=== PATIENT | male | born 1960 | race Caucasian/White ===

== ENCOUNTER → 2018-01-14 07:20 | Outpatient (CLI) | payer OTHER, SELFPAY ==
[2018-01-14 08:08] LABS: Basophils # 0.1 K/mm3 (0-0.2); Eosinophils # 0.4 K/mm3 (0.0-0.4); Hematocrit 38.8 % (42.0-52.0); Hemoglobin 12.9 g/dL (14.1-18.0); Lymphocytes % 27.7 K/mm3 (10-50); Mean Corpuscular HGB Conc 33.3 g/dL (31.8-35.4); Mean Corpuscular Hemoglobin 29.3 pg (27.0-31.2); Mean Platelet Volume 8.5 fl (7.4-10.4); Monocytes # 0.6 K/mm3 (0.1-1.0); Monocytes % 7.7 % (1.7-9.3); Neutrophils # 4.2 K/mm3 (1.8-7.8); Neutrophils % 58.6 % (37.0-80.0); Platelet Count 268 K/mm3 (142-424); Red Blood Count 4.41 M/mm3 (4.60-6.20); Red Cell Distribution Width 13.2 % (11.5-17.5); White Blood Count 7.1 K/mm3 (4.8-10.8)
[2018-01-14 09:54] LABS: Hemoglobin A1C 9.2 % (0.0-7.0)
[2018-01-14 10:02] LABS: Alanine Aminotransferase 29 U/L (12-78); Albumin/Globulin Ratio 1.4 (1.1-1.8); Alkaline Phosphatase 70 U/L (46-116); Anion Gap 19.5 mEq/L (5-15); Aspartate Amino Transferase 19 U/L (15-37); Bilirubin,Total 0.3 mg/dL (0.2-1.0); Blood Urea Nitrogen 23 mg/dL (7-18); Calcium 9.5 mg/dL (8.5-10.1); Carbon Dioxide 27 mmol/L (21.0-32.0); Chloride 100 mmol/L (98-107); Chol/HDL Ratio 9.9 (1-3.5); Cholesterol 237 mg/dL (140-200); Creatinine,Serum 1.18 mg/dL (0.70-1.30); Estimated Glomerular Filt Rate 63 ml/min (>60); Ferritin 28 ng/mL (8-388); GFR (African American) 76 ML/MIN (>60); Globulin 2.8 gm/dl (1.3-3.2); Glucose 257 mg/dL (74-106); HDL Cholesterol 24 mg/dL (27-67); Potassium 4.5 mmoL/L (3.5-5.1); Sodium 142 mmol/L (136-145); Total Protein,Serum 6.8 gm/dL (6.4-8.2)
[2018-01-14 10:07] LABS: Triglycerides 728 mg/dL (30-200)
== END ==
PROVIDERS: Visit Provider Internal Medicine Adolescent Medicine
DX: E78.1 Pure hyperglyceridemia (principal); E83.110 Hereditary hemochromatosis; E11.9 Type 2 diabetes mellitus without complications
CPT/HCPCS: 36415; 80053; 80061; 82728; 83036; 85025

== ENCOUNTER 2018-04-15 08:30 | Outpatient (RCR) | payer BC, SELFPAY ==
--- NOTE | 2018-01-08 09:29 | HMH.PTOPEV ---
Rehab Outpatient Evaluation Rehab OP Evaluation Start: 01/08/18 09:23 Freq: Status: Active Protocol: Document 01/08/18 09:23 WARREN (Rec: 01/08/18 09:29 WARREN [id number]) Electronically Signed By Karthikeyan Franks, PT 01/08/18 09:23 Outpatient Therapy Subjective History Subjective History Pt presents with right shld stiffness and weakness 5 wks S /P right SAD with bicep tenodesis. He reports minimal discomfort at rest and pain only with certain movements. He originally injured the shld > 1 yr ago after [place] He reports PMH of HL and DM-II. Chief Complaint Pain Stiff Symptom Type Ache Symptoms Relieved By Rest/Positioning Symptoms Aggravated By Physical Activity Prior Functional Limitations Reaching Lifting Sleeping Current Functional Limitations Reaching Lifting Level of pain today (0-10) 2 Pain scale - at its worst (0-10) 3 Shoulder/Elbow Eval Shoulder Objective Measurements Palpation Tenderness tenderness over the bicipital tendon right shoulder exam standard Posture Shoulder Posture Sitting Position (L) Rounded (R) Rounded Shoulder ROM Right Shoulder Abduction Active Range of 0-105 Motion (degrees) Shoulder Flexion Active Range of Motion 0-115 (degrees) Query Text: Shoulder External Rotation Active Range 0-35 of Motion (degrees) Shoulder Internal Rotation Active Range 0-25 of Motion (degrees) Shoulder MMT Shoulder Abduction Strength Grade 2+ Poor+ Shoulder Flexion Strength Grade 2+ Poor+ Shoulder External Rotation Strength 2+ Poor+ Grade Shoulder Internal Rotation Strength 2+ Poor+ Grade Elbow Objective Measurements Outpatient Therapy Assessment Impairments Problems/Impairmments Palpation Tenderness Impaired Range of Motion Impaired Strength Impaired Lifting Subjective C/O Pain Impaired Self Care/Self Management Prognosis Rehab Potential Good Clinical Impression Consistent with Diagnosis Yes Short Term Goals Number of Weeks
--- NOTE | 2018-02-19 09:16 | HMH.RHREAS ---
Rehab Reassessment Rehab OP Re-assessment Start: 02/19/18 09:10 Freq: Status: Active Protocol: Document 02/19/18 09:13 WARREN (Rec: 02/19/18 09:16 WARREN [id number]) Electronically Signed By Karthikeyan Franks, PT 02/19/18 09:13 Rehab Re-assessment Subjective Subjective Pt reports minimal pain and only intermittent at this time . Objective Objective Notes Right shld AROM: Flex= 0-140, ABD= 0-117, ER= 0-46, IR= 0-49 Assessment Progress Assessment Progressing as Expected Assessment Notes Pt with steadily improving ROM and strength, remain very stiff at end range. Patient goals met ST,2,3,4,5 LT Goals Not Met ST LT,2,3,4,5 Revised Goals none Plan Plan Continue per initial POC Frequency of Therapy 2x/wk Duration of therapy 8 wks Time and Billing Re-Eval Time 15 Re-Eval Billing Units 1 PHYSICIAN CERTIFICATION: I certify the specified therapy services for Deshawn Zarate are required, authorized, and reviewed every 30 days.
== END 2018-04-15 08:31 | disposition home or self-care (01) ==
LOC: PT 08:30
PROVIDERS: Family Provider Internal Medicine Adolescent Medicine; PCP Internal Medicine Adolescent Medicine; Visit Provider Orthopaedic Surgery
DX: M25.511 Pain in right shoulder (principal); R53.1 Weakness
CPT/HCPCS: 97010; 97014; 97110; 97140; 97163; 97164; G0283

== ENCOUNTER → 2018-07-23 09:15 | Outpatient (CLI) | payer BC, SELFPAY ==
[2018-07-23 10:23] LABS: Alanine Aminotransferase 31 U/L (12-78); Albumin/Globulin Ratio 1.3 (1.1-1.8); Alkaline Phosphatase 57 U/L (46-116); Anion Gap 13.5 mEq/L (5-15); Aspartate Amino Transferase 10 U/L (15-37); Bilirubin,Total 0.3 mg/dL (0.2-1.0); Blood Urea Nitrogen 30 mg/dL (7-18); Calcium 9.9 mg/dL (8.5-10.1); Carbon Dioxide 29 mmol/L (21.0-32.0); Chloride 101 mmol/L (98-107); Chol/HDL Ratio 9.1 (1-3.5); Cholesterol 263 mg/dL (140-200); Creatinine,Serum 0.98 mg/dL (0.70-1.30); Estimated Glomerular Filt Rate 78 ml/min (>60); Ferritin 23 ng/mL (8-388); GFR (African American) 94 ML/MIN (>60); Glucose 247 mg/dL (74-106); HDL Cholesterol 29 mg/dL (27-67); Potassium 4.5 mmoL/L (3.5-5.1); Sodium 139 mmol/L (136-145)
[2018-07-23 10:25] LABS: Basophils # 0.1 K/mm3 (0-0.2); Basophils % 1.4 % (0.1-2.0); Eosinophils # 0.3 K/mm3 (0.0-0.4); Eosinophils % 4.3 % (0.1-12.0); Hematocrit 43.2 % (42.0-52.0); Hemoglobin 13.7 g/dL (14.1-18.0); Mean Corpuscular HGB Conc 31.8 g/dL (31.8-35.4); Mean Corpuscular Hemoglobin 28.1 pg (27.0-31.2); Mean Corpuscular Volume 88.5 fl (80-94); Mean Platelet Volume 8.2 fl (7.4-10.4); Monocytes # 0.4 K/mm3 (0.1-1.0); Monocytes % 6.4 % (1.7-9.3); Neutrophils # 4.2 K/mm3 (1.8-7.8); Neutrophils % 59.9 % (37.0-80.0); Platelet Count 264 K/mm3 (142-424); Red Blood Count 4.88 M/mm3 (4.60-6.20); Red Cell Distribution Width 14.1 % (11.5-17.5)
[2018-07-23 10:26] LABS: Hemoglobin A1C 9.2 % (0.0-7.0); Triglycerides 536 mg/dL (30-200)
== END ==
PROVIDERS: Visit Provider Internal Medicine Adolescent Medicine
DX: E11.9 Type 2 diabetes mellitus without complications (principal); E83.110 Hereditary hemochromatosis; I10 Essential (primary) hypertension
CPT/HCPCS: 36415; 80053; 80061; 82728; 83036; 85025

== ENCOUNTER → 2018-11-25 07:33 | Outpatient (CLI) | payer OTHER, SELFPAY ==
[2018-11-25 07:40] LABS: MANUAL DIFFERENTIAL MANUAL DIFFERENTIAL (MANUAL DIFF)
[2018-11-25 08:13] LABS: Basophils # 0.1 K/mm3 (0-0.2); Basophils % 1.1 % (0.1-2.0); Eosinophils # 0.3 K/mm3 (0.0-0.4); Eosinophils % 4.6 % (0.1-12.0); Hematocrit 45.3 % (42.0-52.0); Lymphocytes # 1.9 K/mm3 (0.7-4.5); Lymphocytes % 26.5 % (10-50); Mean Corpuscular HGB Conc 33.1 g/dL (31.8-35.4); Mean Corpuscular Hemoglobin 28.3 pg (27.0-31.2); Mean Corpuscular Volume 85.5 fl (80-94); Monocytes # 0.5 K/mm3 (0.1-1.0); Monocytes % 6.9 % (1.7-9.3); Neutrophils # 4.3 K/mm3 (1.8-7.8); Neutrophils % 60.8 % (37.0-80.0); Platelet Count 279 K/mm3 (142-424); Red Cell Distribution Width 13.6 % (11.5-17.5)
[2018-11-25 09:35] LABS: Alanine Aminotransferase 33 U/L (12-78); Albumin Level 4.1 gm/dL (3.4-5.0); Alkaline Phosphatase 64 U/L (46-116); Anion Gap 17.3 mEq/L (5-15); Aspartate Amino Transferase 19 U/L (15-37); Bilirubin,Direct 0.1 mg/dL (0.0-0.2); Bilirubin,Indirect 0.2 mg/dL (0.0-0.9); Bilirubin,Total 0.3 mg/dL (0.2-1.0); Blood Urea Nitrogen 33 mg/dL (7-18); Calcium 9.6 mg/dL (8.5-10.1); Carbon Dioxide 23 mmol/L (21.0-32.0); Chloride 102 mmol/L (98-107); Cholesterol 259 mg/dL (140-200); Creatinine,Serum 1.21 mg/dL (0.70-1.30); Estimated Glomerular Filt Rate 61 ml/min (>60); Free Thyroxine Index 2.2 ug/dL (5.93-13.13); GFR (African American) 74 ML/MIN (>60); Glucose 245 mg/dL (74-106); HDL Cholesterol 26 mg/dL (27-67); Potassium 4.3 mmoL/L (3.5-5.1); Sodium 138 mmol/L (136-145); T4 (Thyroxine) 6.5 ug/dl (4.7-13.3); Total Protein,Serum 7.2 gm/dL (6.4-8.2); Triiodothryronine (T3) Uptake 34 % (31-39)
[2018-11-25 09:44] LABS: Ferritin 20 ng/mL (8-388)
[2018-11-25 09:53] LABS: Triglycerides 662 mg/dL (30-200)
[2018-11-25 10:30] LABS: Hemoglobin A1C 8.5 % (0.0-7.0)
[2018-11-25 10:52] LABS: Lymphocytes % 31 % (10-50); Monocytes % 6 % (2-9); Neutrophils % 61 % (42-76); Total Cells Counted 100
[2018-11-25 10:53] LABS: Platelet Estimate Normal
== END ==
PROVIDERS: PCP Internal Medicine Adolescent Medicine; Visit Provider Physician Assistant
DX: E11.9 Type 2 diabetes mellitus without complications (principal); E78.1 Pure hyperglyceridemia; E83.110 Hereditary hemochromatosis
CPT/HCPCS: 36415; 80048; 80061; 80076; 82728; 83036; 84436; 84443; 84479; 85007; 85014; 85018; 85048; 85049

== ENCOUNTER → 2018-12-10 07:44 | Outpatient (CLI) | payer BC, SELFPAY ==
--- NOTE | 2018-12-10 07:46 | CA_ITS ---
PROCEDURE: 2-D M-mode and color Doppler study INDICATIONS FOR THE TEST: Chest pain+ COPD Heart Murmur Tobacco Smoking Palpitations Fatigue Syncope Edema Hypertension+Diabetes Mellitus+ Rheumatic Fever SOB+PORRAS Obesity Hyperlipidemia+ Family History HD Additional History GERD, ABN EKG PATIENT INFORMATION HEIGHT: 72 WEIGHT:216 GENDER: Male B/P:116/68 2-D/M-MODE INTERPRETATION: 2-D MEASUREMENTS OBSERVED VALUES IN CMS Right Ventricular Dimension (RVDd) 2.6 Interventricular Septum (Thickness)(IVsd) 1.3 Left Ventricular Internal Dimensions(LVIDd) 4.6 Left Ventricular Posterior Wall (Thickness)(LVPWd) 0.9 Aortic Root 3.5 Aortic Cusp Separation 1.8 Left Atrial Dimensions (LAD) 4.0 2D 1. Left atrium is mildly enlarged, left ventricle is normal size, mild concentric left ventricular hypertrophy, visually estimated ejection fraction 55% with no regional wall motion abnormality. 2. The right atrium and right ventricle are normal size and contractility. 3. The aortic valve is thickened and calcified leaflet continue to display mobility. 4. The mitral and tricuspid valvular grossly normal. 5. The pulmonic valve is poorly present. 6. No significant pericardial effusion noted. DOPPLER INTERROGATION: Doppler interrogation of the aortic, mitral and tricuspid valvular presence of mild mitral and tricuspid regurgitation, tricuspid regurgitation jet velocity is inadequate for calculation of the right ventricular systolic pressure, grade 1 diastolic dysfunction seen without tissue Doppler evidence of raised left atrial pressure. CONCLUSION: 1. Mildly enlarged left atrium, normal left ventricular size, mild concentric left ventricular hypertrophy, visually estimated ejection fraction 55% with no regional wall motion abnormality, grade 1 diastolic dysfunction seen without tissue Doppler evidence of raised left atrial pressure. 2. Thickened and calcified aortic valve without Doppler evidence of aortic stenosis aortic insufficiency. 3. Mild mitral and tricuspid regurgitation 4. No significant pericardial effusion noted.
--- NOTE | 2018-12-10 07:46 | CT_ITS ---
CT chest wo con HISTORY: ITS.REASON: chest pain, ex smoker ORDERING PHYSICIAN: Bro Paul MD PATIENT AGE: 58 years COMPARISON: 10/21/2016 Technique: Axial images obtained. Sagittal, and coronal reformatted images are also generated and reviewed. All CT scans at the facility use one or more dose reduction, viz: automated exposure control, ma/kV adjustment per patient size (including targeted exams where dose is matched to indication, i.e. head), or iterative reconstruction technique. FINDINGS: There are scattered calcified mediastinal and hilar lymph nodes. Coronary artery calcifications are present. There is also some aortic valve calcification noted. Normal heart size. No evidence of pericardial effusion. No evidence of aortic aneurysm. Calcified granuloma is present in the right upper lobe centrally. No lobar consolidation or collapse. No central obstructing lesions. There is mild wedging involving T10 vertebral body which appear stable. No acute bony anomalies are evident. Upper abdominal images show multiple right renal cysts. No calcified gallstones are evident. There is mild thickening of the distal esophagus with possible small hiatal hernia IMPRESSION: 1. No acute thoracic findings. 2. Coronary artery calcification and minimal aortic valve calcification. 3. Mild thickening of the distal esophagus which could be related to esophagitis with possible small hiatal hernia
--- NOTE | 2018-12-10 09:00 | US_ITS ---
US gallbladder HISTORY: Epigastric pain ITS.REASON: GERD, chest pain ORDERING PHYSICIAN: Bro Paul MD PATIENT AGE: 58 years Comparison: None FINDINGS: PANCREAS: Unremarkable. No obvious mass or abnormal fluid collection. No ductal dilatation LIVER: No focal liver lesions demonstrated. Homogeneous echogenicity. No intrahepatic biliary ductal dilatation evident RIGHT KIDNEY: There are multiple right renal cysts. The largest cyst along the lower pole at 7 cm GALLBLADDER: No gallstones, gallbladder wall thickening, pericholecystic fluid, or biliary dilatation. Small amount sludge noted in the gallbladder. IMPRESSION: 1. Multiple right renal cysts. 2. Small amount of gallbladder sludge versus concentrated bile. No gallstones or biliary dilatation
== END ==
PROVIDERS: PCP Internal Medicine Adolescent Medicine; Visit Provider Internal Medicine Cardiovascular Disease
DX: R06.09 Other forms of dyspnea; K21.9 Gastro-esophageal reflux disease without esophagitis; R07.89 Other chest pain; E11.9 Type 2 diabetes mellitus without complications; E78.5 Hyperlipidemia, unspecified; I10 Essential (primary) hypertension; Z87.891 Personal history of nicotine dependence; G47.9 Sleep disorder, unspecified; R40.0 Somnolence
CPT/HCPCS: 71250; 76705; 93306; G0399

== ENCOUNTER → 2018-12-18 06:45 | Outpatient (CLI) | payer BC, SELFPAY ==
--- NOTE | 2018-12-18 06:46 | NM_ITS ---
SPECT MYOCARDIAL PERFUSION SCAN, REST AND STRESS: EXERCISE STRESS: [facility] REVIEW QGS EF AND WALL MOTION EVALUATION: QPS - PERFUSION EVALUATION: HISTORY: DM, Family history PROCEDURE: Rest imaging performed after administration of10.31 millicuries Tc MIBI. Dose administered at7:00 a.m., with imaging thereafter. Stress imaging was then performed following9 minutes 45 seconds of exercise stress. The patient achieved a heart [id number] with projected heart rate of136 . Resting BP165/89 with stress 168/74. At maximum exercise stress,32.3 millicuries Tc MIBI administered at8:40 a.m. with onuioou90 minutes thereafter. FINDINGS: Perfusion Evaluation: The single slice spect images as well as the [facility] bull's-eye data summary were reviewed. Wall Motion and Ejection Fraction Evaluation: Gated SPECT review and analysis used to evaluate these features. There is a 59 % left ventricular ejection fraction. There seems to be good wall motion Uniform myocardial activity at both stress and rest IMPRESSION: No scintigraphic evidence of exercise-induced myocardial ischemia normal ejection fraction normal wall motion
--- NOTE | 2018-12-18 10:00 | HMH.ITSHM ---
Current Home Medications as stated by this patient Deshawn Zarate or charter representative. [] omeprazole metformin lisinopril glimepride fenofirate
== END ==
PROVIDERS: PCP Internal Medicine Adolescent Medicine; Visit Provider Internal Medicine Cardiovascular Disease
DX: R07.9 Chest pain, unspecified (principal); R06.00 Dyspnea, unspecified; R94.31 Abnormal electrocardiogram [ECG] [EKG]; E11.9 Type 2 diabetes mellitus without complications; E78.5 Hyperlipidemia, unspecified; I10 Essential (primary) hypertension; I25.10 Atherosclerotic heart disease of native coronary artery without angina pectoris; K21.9 Gastro-esophageal reflux disease without esophagitis; G47.9 Sleep disorder, unspecified; R06.83 Snoring; R40.0 Somnolence; Z87.891 Personal history of nicotine dependence
CPT/HCPCS: 78452; 93017; A9502

== ENCOUNTER → 2019-02-03 08:11 | Outpatient (POV) | payer BC, SELFPAY | PROVIDERS: Visit Provider Dermatology | DX: Z00.00 Encounter for general adult medical examination without abnormal findings (principal) ==

== ENCOUNTER 2019-02-24 12:10 | Emergency (ER) | payer BC, SELFPAY ==
[2019-02-24] VITALS (8 sets, daily range): BP systolic 116–152; BP diastolic 60–94; PULSE 77–111; RESP 15–19; TEMP 36.7; O2SAT 94–98; BMI 28.5
--- NOTE | 2019-02-24 12:11 | PC.NURSE ---
Dr. Castaneda at BS upon pt arrival to ED, Dr Castaneda gave verbal orders for pt.
--- NOTE | 2019-02-24 12:11 | PC.NURSE ---
radiology contacted for chest xray and possible head ct radiology staff stated that wanted portable chest xray but no head CT at this time
--- NOTE | 2019-02-24 12:12 | XR_ITS ---
XR chest AP HISTORY: ITS.REASON: tachycardia ORDERING PHYSICIAN: Donald Cantor MD PATIENT AGE: 58 years COMPARISON: 10/21/2016. FINDINGS: The cardiomediastinal silhouette and pulmonary vascularity are within normal limits. The lungs are clear without infiltrates, suspicious nodules, or pleural effusions. No acute bony abnormalities. IMPRESSION: Negative chest, no acute finding
--- NOTE | 2019-02-24 12:13 | PC.NURSE ---
DR MILLER AT BEDSIDE AND DR CARROLL
--- NOTE | 2019-02-24 12:14 | HMH.EDGENADL ---
ED Disposition Clinical Impression: Weakness, Diaphoresis, Tachycardia Disposition: Home, Self-Care Condition on Discharge: Good Additional Instructions: See Dr. Stokes tomorrow at 9 AM. Return to the emergency room if symptoms return. Referrals: Provider,Referral, [Referring] - - Critical Care Critical Care Time: No Attestation: On , the high probability of a clinically significant, sudden or life threatening deterioration of the following system(s) required my full and direct attention, intervention and personal management. The time I documented below is in addition to time spent performing reported procedures but includes the following listed in this critical care notation. Medical Decision Making - Varghese Inquiry Pt receiving controlled substance: No Vital Signs: 02/24/19 12:11 02/24/19 12:17 02/24/19 12:41 Temperature Temperature Source Pulse Rate [Left Radial] 100 H 111 H 83 Respiratory Rate 19 16 Blood Pressure [Right Arm] 116/84 145/94 H 119/70 Blood Pressure Mean [Right Arm] 94 111 86 Blood Pressure Source [Right Arm] Automatic Cuff Automatic Cuff Automatic Cuff Blood Pressure Position [Right Arm] Sitting Sitting Sitting 02 Sat by Pulse Oximetry 95 96 94 L Oxygen Delivery Method Room Air Room Air Room Air 02/24/19 13:11 02/24/19 13:30 02/24/19 14:22 Temperature 98.0 F Temperature Source Oral Pulse Rate [Left Radial] 83 85 80 Respiratory Rate 17 17 Blood Pressure [Right Arm] 127/67 123/60 128/68 Blood Pressure Mean [Right Arm] 87 81 88 Blood Pressure Source [Right Arm] Automatic Cuff Automatic Cuff Automatic Cuff Blood Pressure Position [Right Arm] Sitting Sitting Supine 02 Sat by Pulse Oximetry 94 L 95 97 Oxygen Delivery Method Room Air Room Air Room Air 02/24/19 16:00 Temperature Temperature Source Pulse Rate [Left Radial] 77 Respiratory Rate Blood Pressure [Right Arm] 152/76 H Blood Pressure Mean [Right Arm] 101 Blood Pressure Source [Right Arm] Automatic Cuff Blood Pressure Position [Right Arm] Sitting 02 Sat by Pulse Oximetry 97 Oxygen Delivery Method Room Air - Lab Data Lab Results 02/24/19 12:10: WBC 7.9, RBC 5.10, Hgb 14.1, Hct 43.8, MCV 85.9, MCH 27.6, MCHC 32.1, RDW 14.3, Plt Count 280, MPV 8.8, Neut % (Auto) 62.9, Lymph % (Auto) 27.1, [place] % (Auto) 5.8, Eos % (Auto) 3.1, Baso % (Auto) 1.0, Neut # (Auto) 5.0, Lymph # (Auto) 2.1, [place] # (Auto) 0.5, Eos # (Auto) 0.3, Baso # (Auto) 0.1 02/24/19 12:10: D-Dimer 121 02/24/19 12:10: Sodium 140, Potassium 3.8, Chloride 105, Carbon Dioxide 21, Anion Gap 17.8 H, BUN 18, Creatinine 1.34 H, Estimated Creat Clear 79, Estimated GFR 54 L, Est GFR ( Amer) 66, Glucose 226 H, Calcium 8.8, Total Bilirubin 0.6, AST 24, ALT 39, Alkaline Phosphatase 61, Troponin I < 0.02, Total Protein 6.9, Albumin 3.9, Globulin 3.0, Albumin/Globulin Ratio 1.3 02/24/19 15:23: Troponin I < 0.02 02/24/19 16:24: POC Glucose 205 H Result diagrams: 02/24/19 12:10 02/24/19 12:10 - Radiology Data #1 Image(s): Chest Image Reviewed: Yes I reviewed the patient's radiology image Preliminary Findings: Normal/NAD - ECG Data Tracing #1 EKG interpreted by Donald Cantor MD: Rhythm: sinus tachycardia Rate: 112 [place]: normal Ectopy: none Conduction: normal ST Segment Changes: none T Wave Changes: Nonspecific Q Waves: none No evidence of acute ischemia or injury - Physician Consults Physician Consulted: Courtney Stokes Time: 13:39 Reason -: Pt condition Comment/Response: Recommends discharge if second troponin normal, follow-up in the clinic tomorrow or Tim. Additional Consult: Leonel Time: 16:38 Reason -: Cardiology Eval/Care Comment/Response: Okay to discharge - Reevaluation(s) Time: 16:19 Reevaluation #1: Feels fine like nothing happened . Second troponin normal. Medical Decision Narrative: Prior Chest CT: IMPRESSION: 1. No acute thoracic findings. 2. Coronary artery calcification and m
--- NOTE | 2019-02-24 12:19 | ED_ITS ---
ED Disposition Clinical Impression: Weakness, Diaphoresis, Tachycardia Disposition: Home, Self-Care Condition on Discharge: Good Additional Instructions: See Dr. Stokes tomorrow at 9 AM. Return to the emergency room if symptoms return. Referrals: Provider,Referral, [Referring] - - Critical Care Critical Care Time: No Attestation: On , the high probability of a clinically significant, sudden or life threatening deterioration of the following system(s) required my full and direct attention, intervention and personal management. The time I documented below is in addition to time spent performing reported procedures but includes the following listed in this critical care notation. Medical Decision Making - Varghese Inquiry Pt receiving controlled substance: No Vital Signs: 02/24/19 12:11 02/24/19 12:17 02/24/19 12:41 Temperature Temperature Source Pulse Rate [Left Radial] 100 H 111 H 83 Respiratory Rate 19 16 Blood Pressure [Right Arm] 116/84 145/94 H 119/70 Blood Pressure Mean [Right Arm] 94 111 86 Blood Pressure Source [Right Arm] Automatic Cuff Automatic Cuff Automatic Cuff Blood Pressure Position [Right Arm] Sitting Sitting Sitting 02 Sat by Pulse Oximetry 95 96 94 L Oxygen Delivery Method Room Air Room Air Room Air 02/24/19 13:11 02/24/19 13:30 02/24/19 14:22 Temperature 98.0 F Temperature Source Oral Pulse Rate [Left Radial] 83 85 80 Respiratory Rate 17 17 Blood Pressure [Right Arm] 127/67 123/60 128/68 Blood Pressure Mean [Right Arm] 87 81 88 Blood Pressure Source [Right Arm] Automatic Cuff Automatic Cuff Automatic Cuff Blood Pressure Position [Right Arm] Sitting Sitting Supine 02 Sat by Pulse Oximetry 94 L 95 97 Oxygen Delivery Method Room Air Room Air Room Air 02/24/19 16:00 Temperature Temperature Source Pulse Rate [Left Radial] 77 Respiratory Rate Blood Pressure [Right Arm] 152/76 H Blood Pressure Mean [Right Arm] 101 Blood Pressure Source [Right Arm] Automatic Cuff Blood Pressure Position [Right Arm] Sitting 02 Sat by Pulse Oximetry 97 Oxygen Delivery Method Room Air - Lab Data Lab Results 02/24/19 12:10: WBC 7.9, RBC 5.10, Hgb 14.1, Hct 43.8, MCV 85.9, MCH 27.6, MCHC 32.1, RDW 14.3, Plt Count 280, MPV 8.8, Neut % (Auto) 62.9, Lymph % (Auto) 27.1, [place] % (Auto) 5.8, Eos % (Auto) 3.1, Baso % (Auto) 1.0, Neut # (Auto) 5.0, Lymph # (Auto) 2.1, [place] # (Auto) 0.5, Eos # (Auto) 0.3, Baso # (Auto) 0.1 02/24/19 12:10: D-Dimer 121 02/24/19 12:10: Sodium 140, Potassium 3.8, Chloride 105, Carbon Dioxide 21, Anion Gap 17.8 H, BUN 18, Creatinine 1.34 H, Estimated Creat Clear 79, Estimated GFR 54 L, Est GFR ( Amer) 66, Glucose 226 H, Calcium 8.8, Total Bilirubin 0.6, AST 24, ALT 39, Alkaline Phosphatase 61, Troponin I < 0.02, Total Protein 6.9, Albumin 3.9, Globulin 3.0, Albumin/Globulin Ratio 1.3 02/24/19 15:23: Troponin I < 0.02 02/24/19 16:24: POC Glucose 205 H Result diagrams: 02/24/19 12:10 02/24/19 12:10 - Radiology Data #1 Image(s): Chest Image Reviewed: Yes I reviewed the patient's radiology image Preliminary Findings: Normal/NAD - ECG Data Nhi
--- NOTE | 2019-02-24 12:20 | PC.NURSE ---
radiology notified of stat CT head r/o stroke per ER MD order
--- NOTE | 2019-02-24 12:20 | CT_ITS ---
CT head/brain wo con HISTORY: ITS.REASON: AMS ORDERING PHYSICIAN: Donald Cantor MD PATIENT AGE: 58 years COMPARISON: None TECHNIQUE: Axial images obtained without contrast. Brain and bone windows reviewed. All CT scans at the facility use one or more dose reduction, viz: automated exposure control, ma/kV adjustment per patient size (including targeted exams where dose is matched to indication, i.e. head), or iterative reconstruction technique. FINDINGS: No midline shift, mass effect, intracranial hemorrhage, hydrocephalus, or extra-axial fluid collection is evident. The calvarium has an unremarkable appearance. No mastoid effusion. No sinus air-fluid levels.. IMPRESSION: Negative CT head without contrast. No acute finding
--- NOTE | 2019-02-24 12:22 | PC.NURSE ---
Rad aware of orders
--- NOTE | 2019-02-24 12:23 | PC.NURSE ---
pt to CT
--- NOTE | 2019-02-24 12:25 | PC.NURSE ---
Pt tp rad
[2019-02-24 12:37] LABS: Basophils # 0.1 K/mm3 (0-0.2); Eosinophils # 0.3 K/mm3 (0.0-0.4); Eosinophils % 3.1 % (0.1-12.0); Hematocrit 43.8 % (42.0-52.0); Hemoglobin 14.1 g/dL (14.1-18.0); Lymphocytes # 2.1 K/mm3 (0.7-4.5); Lymphocytes % 27.1 % (10-50); Mean Corpuscular HGB Conc 32.1 g/dL (31.8-35.4); Mean Corpuscular Hemoglobin 27.6 pg (27.0-31.2); Mean Corpuscular Volume 85.9 fl (80-94); Mean Platelet Volume 8.8 fl (7.4-10.4); Monocytes # 0.5 K/mm3 (0.1-1.0); Monocytes % 5.8 % (1.7-9.3); Neutrophils % 62.9 % (37.0-80.0); Platelet Count 280 K/mm3 (142-424); Red Cell Distribution Width 14.3 % (11.5-17.5); White Blood Count 7.9 K/mm3 (4.8-10.8)
--- NOTE | 2019-02-24 12:37 | PC.NURSE ---
pt return from CT
[2019-02-24 12:43] LABS: Alanine Aminotransferase 39 U/L (12-78); Albumin Level 3.9 gm/dL (3.4-5.0); Albumin/Globulin Ratio 1.3 (1.1-1.8); Alkaline Phosphatase 61 U/L (46-116); Anion Gap 17.8 mEq/L (5-15); Aspartate Amino Transferase 24 U/L (15-37); Bilirubin,Total 0.6 mg/dL (0.2-1.0); Blood Urea Nitrogen 18 mg/dL (7-18); Calcium 8.8 mg/dL (8.5-10.1); Carbon Dioxide 21 mmol/L (21.0-32.0); Chloride 105 mmol/L (98-107); Creatinine Clearance Estimated 79 mL/min (50-200); Creatinine,Serum 1.34 mg/dL (0.70-1.30); Estimated Glomerular Filt Rate 54 ml/min (>60); GFR (African American) 66 ML/MIN (>60); Glucose 226 mg/dL (74-106); Potassium 3.8 mmoL/L (3.5-5.1); Sodium 140 mmol/L (136-145); Total Protein,Serum 6.9 gm/dL (6.4-8.2); Troponin I < 0.02 ng/ml (0.00-0.06)
[2019-02-24 13:04] LABS: D-Dimer 121 ng/mL (0-400)
--- NOTE | 2019-02-24 13:30 | PC.NURSE ---
MD at bedside to update pt and family of test results and further care needed.
--- NOTE | 2019-02-24 13:45 | PC.NURSE ---
Randa from Dr. Stokes's office called to schedule pt for a follow up visit. Pt will see Dr. Stokes Tomorrow (Saturday02/25/19) at 9:00am in his office
--- NOTE | 2019-02-24 15:37 | PC.NURSE ---
Called for guest tray for pt and
--- NOTE | 2019-02-24 15:51 | PC.NURSE ---
lab stated will be 2 minutes for troponin result, spoke with Tiny
[2019-02-24 15:54] LABS: Troponin I < 0.02 ng/ml (0.00-0.06)
--- NOTE | 2019-02-24 16:16 | PC.NURSE ---
Dr. Castaneda paged
[2019-02-24 16:32] LABS: POC Glucose,Bedside 205 (70-110)
--- NOTE | 2019-02-24 16:32 | PC.NURSE ---
TAYO PRADHAN speaking with Dr. Castaneda at this time
== END 2019-02-24 16:53 | disposition home or self-care (01) ==
PROVIDERS: Emergency Provider Emergency Medicine; PCP Internal Medicine Adolescent Medicine
DX: R53.1 Weakness (principal); R61 Generalized hyperhidrosis; R00.0 Tachycardia, unspecified; I10 Essential (primary) hypertension; K21.9 Gastro-esophageal reflux disease without esophagitis; E11.65 Type 2 diabetes mellitus with hyperglycemia; Z79.4 Long term (current) use of insulin; Z79.84 Long term (current) use of oral hypoglycemic drugs; Z87.891 Personal history of nicotine dependence; E78.5 Hyperlipidemia, unspecified; E83.119 Hemochromatosis, unspecified
CPT/HCPCS: 36415; 70450; 71045; 80053; 82962; 84484; 85025; 85378; 93005; 99284

== ENCOUNTER → 2019-09-24 07:23 | Outpatient (CLI) | payer BC, SELFPAY ==
[2019-09-24 07:42] LABS: Basophils # 0.1 K/mm3 (0-0.2); Basophils % 1.2 % (0.1-2.0); Eosinophils # 0.4 K/mm3 (0.0-0.4); Eosinophils % 5.1 % (0.1-12.0); Hematocrit 48.7 % (42.0-52.0); Hemoglobin 16.3 g/dL (14.1-18.0); Lymphocytes # 1.9 K/mm3 (0.7-4.5); Lymphocytes % 23.9 % (10-50); Mean Corpuscular HGB Conc 33.4 g/dL (31.8-35.4); Mean Corpuscular Volume 89.9 fl (80-94); Mean Platelet Volume 9.3 fl (7.4-10.4); Monocytes # 0.6 K/mm3 (0.1-1.0); Monocytes % 7.7 % (1.7-9.3); Neutrophils # 4.8 K/mm3 (1.8-7.8); Neutrophils % 62.2 % (37.0-80.0); Platelet Count 252 K/mm3 (142-424); Red Blood Count 5.42 M/mm3 (4.60-6.20); Red Cell Distribution Width 13.6 % (11.5-17.5); White Blood Count 7.7 K/mm3 (4.8-10.8)
[2019-09-24 08:39] LABS: Hemoglobin A1C 9.5 % (0.0-7.0)
[2019-09-24 10:13] LABS: Alanine Aminotransferase 31 U/L (12-78); Albumin Level 3.9 gm/dL (3.4-5.0); Albumin/Globulin Ratio 1.4 (1.1-1.8); Alkaline Phosphatase 92 U/L (46-116); Anion Gap 17.5 mEq/L (5-15); Aspartate Amino Transferase 25 U/L (15-37); Bilirubin,Total 0.5 mg/dL (0.2-1.0); Carbon Dioxide 22 mmol/L (21.0-32.0); Chloride 101 mmol/L (98-107); Chol/HDL Ratio 7.9 (1-3.5); Cholesterol 214 mg/dL (140-200); Creatinine,Serum 1.45 mg/dL (0.70-1.30); Estimated Glomerular Filt Rate 49 ml/min (>60); Ferritin 38 ng/mL (8-388); Free Thyroxine Index 0.9 ug/dL (5.93-13.13); GFR (African American) 60 ML/MIN (>60); Globulin 2.8 gm/dl (1.3-3.2); Glucose 363 mg/dL (74-106); HDL Cholesterol 27 mg/dL (27-67); Potassium 4.5 mmoL/L (3.5-5.1); Sodium 136 mmol/L (136-145); T4 (Thyroxine) 2.6 ug/dl (4.7-13.3); Thyroid Stimulating Hormone 1.27 uIU/ml (0.358-3.740); Total Protein,Serum 6.7 gm/dL (6.4-8.2); Triiodothryronine (T3) Uptake 35 % (31-39)
[2019-09-24 10:35] LABS: Blood Urea Nitrogen 44 mg/dL (7-18)
[2019-09-24 10:36] LABS: Triglycerides 599 mg/dL (30-200)
== END ==
PROVIDERS: Visit Provider Internal Medicine Adolescent Medicine
DX: E78.1 Pure hyperglyceridemia (principal); E11.9 Type 2 diabetes mellitus without complications; E83.110 Hereditary hemochromatosis
CPT/HCPCS: 36415; 80053; 80061; 82728; 83036; 84436; 84443; 84479; 85025

== ENCOUNTER 2020-07-13 09:19 | Emergency (ER) | payer BC, SELFPAY ==
[2020-07-13 09:29] VITALS: BP 166/75; PULSE 62; RESP 16; O2SAT 98; BMI 27.1
--- NOTE | 2020-07-13 09:31 | HMH.EDUTC ---
[facility] [place] Disposition Clinical Impression: Exposure to COVID-19 virus Disposition: Home, Self-Care Condition on Discharge: Good Instructions: Preventing the Spread of Coronavirus Discharge Instructions Additional Instructions: Drink plenty of fluids. Take tylenol for pain or fever. Follow up with your regular doctor. GO TO THE ER FOR ANY WORSENING SYMPTOMS Referrals: Tj Stokes MD [Primary Care Provider] - Time of Disposition: 09:32 Medical Decision Making - Medical Records Medical records reviewed: No: I reviewed the patient's medical records. - Varghese Inquiry Pt receiving controlled substance: No Vital Signs: 07/13/20 09:29 07/13/20 09:40 Temperature 98.1 F Temperature Source Oral Pulse Rate 62 Pulse Rate [Radial] 62 Respiratory Rate 16 16 Blood Pressure 166/75 H Blood Pressure [Right Arm] 166/75 H Blood Pressure Mean [Right Arm] 105 Blood Pressure Source Automatic Cuff Blood Pressure Source [Right Arm] Automatic Cuff Blood Pressure Position Sitting Blood Pressure Position [Right Arm] Sitting 02 Sat by Pulse Oximetry 98 Oxygen Delivery Method Room Air Room Air Orders (Tests/Meds): ORDERS Category Date Time Status Covid-19 Nasal PCR ([facility]) Routine Lab 07/13/20 09:36 Received [facility] [place] HPI - General Stated complaint: possible exposure Time Seen by Provider: 07/13/20 09:31 - History of Present Illness Provider Complaint: He is here needing a covid test. He denies any symptom. He thinks he may have been exposed to covid last week. - Related Data Home Medications Medication Instructions Recorded Confirmed diclofenac sodium 75 mg 75 mg PO BID 10/22/17 02/24/19 tablet,delayed release fenofibrate 150 mg capsule 145 mg PO ONCE cap 10/22/17 02/24/19 metformin 1,000 mg tablet 1,000 mg PO BID 10/22/17 02/24/19 omega-3 fatty acids 500 mg capsule 1,000 mg PO ONCE 10/22/17 02/24/19 glimepiride 4 mg tablet 4 mg PO BID tab 11/28/18 02/24/19 insulin glargine 100 unit/mL (3 30 unit SQ HS ml 11/28/18 02/24/19 mL) subcutaneous pen liraglutide 0.6 mg/0.1 mL (18 mg/3 0.6 mg SQ DAILY 11/28/18 02/24/19 mL) subcutaneous pen injector Rosuvastatin Calcium 20 mg PO HS 02/24/19 02/24/19 dapagliflozin 10 mg-metformin ER 1 tab PO DAILY each 10/06/19 10/06/19 1,000 mg tablet,extended release 24hr Previous Rx's Medication Instructions Recorded omeprazole 40 mg capsule,delayed See Rx Instructions .ROUTE 06/06/20 release .COMPLEX #30 cap Allergies Allergy/AdvReac Type Severity Reaction Status Date / Time No Known Allergies Allergy Verified 10/06/19 11:36 [facility] History - Hepatitis A Screen Attestation statement:: This patient has been screened for Hepatitis A risk factors. I have reviewed the patient's past medical history: Yes Medical History: Reports:: Diabetes Mellitus Type 2, Gastroesophageal Reflux Disease(GERD), Hyperlipidemia, Hypertension Denies:: Cancer, Diabetes Mellitus Type 1, Internal Pacemaker, MRSA, Seizures Comment: Obesity Other Surgeries: Yes: Cardiac Catheterization. No: Pacemaker Amputation: No Fractures: No - Social History Smoking Status: Former smoker #Yrs smoked (if former smoker): 20 Alcohol Intake: never Alcohol Intake Frequency:: holidays/special occasions only Substance Use Type: denies use Occupational Status: employed Housing: house Household Members: spouse Family Hx:: Bleeding Disorder, Coronary Artery Disease, Hypertension Comment: Father-CAD,CABG@38. Sister-CAD ROS Obtained: Yes All systems reviewed & no additional complaints - Constitutional Constitutional: Denies chills, Denies fever(s) - Eyes Eyes: Reports system reviewed and no additional complaints, except as docu - ENT Ears, Nose, Mouth, and Throat: Reports system reviewed and no additional complaints, except as docu - Cardiovascular Cardiovascular: Reports system reviewed and no additional complaints, except as docu - Respiratory Res
[2020-07-13 09:40] VITALS: BP 166/75; PULSE 62; RESP 16; TEMP 36.7; O2SAT 98
[2020-07-14 17:43] LABS: Covid-19 Nasal PCR Sendout Lex Not Detected
== END 2020-07-13 09:41 | disposition home or self-care (01) ==
PROVIDERS: Emergency Provider Nurse Practitioner Family; PCP Internal Medicine Adolescent Medicine
DX: Z20.828 Contact with and (suspected) exposure to other viral communicable diseases (principal)
CPT/HCPCS: 99201; U0004

== ENCOUNTER 2021-02-06 18:45 | Emergency (ER) | payer BC, SELFPAY ==
[2021-02-06 19:07] VITALS: BP 144/70; PULSE 74; RESP 19; TEMP 36.9; O2SAT 99; BMI 27.8
--- NOTE | 2021-02-06 20:03 | HMH.EDUTC ---
[facility] – [place] Disposition Clinical Impression: Laceration Disposition: Home, Self-Care Condition on Discharge: Good Instructions: How to Care for a Laceration After Repair, Laceration Repair, DI for Laceration Repair -- Simple, Amoxicillin and Clavulanic Acid Additional Instructions: Suture instructions: You have required stitches today. Please read the following instructions so you know how to care for them: 1. Keep wound area dry for the first 24 hours. 2 May clean gently with mild soap and water, after 48 hours to prevent crusting over suture knots. 3. You may shower if your provider gives permission but do not take a bath until the skin is healed.. 4. Never leave a wet dressing or Band-Aid on your stitches as this allows bacteria to reach the area and may cause infection. Band-aids can cause the wound to sweat and not recommended to wear for long periods of time Watch for signs of infection: Increasing redness, tenderness or warmth around the suture site Unusual swelling around the site Appearance of pus around each suture or any red streaks Fever If you develop any of the above signs or symptoms of infection, Follow up with Family Physician immediately 5. Suture removal in _10-12__days 6. Return to [facility] or follow up with family doctor for removal. This can be done by any medical provider during regular hours on Saturday through Saturday, by appointment. Prescriptions: Amoxicillin/Potassium Clav [Augmentin 500mg tab] 500 mg PO TID #21 tab Transmission Status: Received by [facility] Referrals: Tj Stokes MD [Primary Care Provider] - As needed Time of Disposition: 20:08 Medical Decision Making - Varghese Inquiry Pt receiving controlled substance: No Varghese was queried for this patient: No Vital Signs: 02/06/21 19:07 02/06/21 20:16 Temperature 98.5 F 98.3 F Temperature Source Oral Pulse Rate 74 Pulse Rate [Right] 74 Respiratory Rate 19 19 Blood Pressure 146/76 H Blood Pressure [Right Arm] 144/70 H Blood Pressure Mean [Right Arm] 94 02 Sat by Pulse Oximetry 99 Oxygen Delivery Method Room Air Orders (Tests/Meds): ED MEDICATIONS Discontinued Medications Generic Name Dose Route Start Last Admin Trade Name Freq PRN Reason Stop Dose Admin Lidocaine HCl 5 ml 02/06/21 19:14 06/07/21 20:15 Lidocaine 1% 5ml Pf Vial IJ 02/06/21 19:15 5 ml ONCE ONE Administration Tetanus/Diphtheria Toxoids 0.5 ml 02/06/21 19:14 02/06/21 19:21 Tetanus-Diphth Toxoid, Adult 0.5ml Syr IM 02/06/21 19:15 0.5 ml .ONCE ONE Administration [facility] – [place] HPI - General Stated complaint: AO 02/06@1815 lac l hand Time Seen by Provider: 02/06/21 19:30 Mode of Arrival: Ambulatory Source of Information: Patient Limitations: No Limitations Description of Symptoms (Recalled from Triage Doc. by RN): pt has a lac between his L thumb and palm. a wrench slipped and cut him. HEENT Symptoms (Recalled from RN notes): No Resp Symptoms (Recalled from RN notes): No Skin Symptoms (Recalled from RN notes): Yes (lac on L hand between thumb and palm) MS Symptoms (Recalled from RN notes): No Functional Status (Recalled from RN notes): na - History of Present Illness Provider Complaint: Patient states that he was outside working putting a basketball goal on the barn when the wrench slipped and cut him at the base of his left thumb between his left thumb and index finger State that he applied pressure and looked at it and seen that it may need stitches so he came in to get it checked and get tetanus injection - Related Data Home Medications Medication Instructions Recorded Confirmed diclofenac sodium 75 mg 75 mg PO BID 10/22/17 02/24/19 tablet,delayed release fenofibrate 150 mg capsule 145 mg PO ONCE cap 10/22/17 02/24/19 metformin 1,000 mg tablet 1,000 mg PO BID 10/22/17 02/24/19 omega-3 fatty acids 500 mg capsule 1,000 mg PO ONCE 10/22/17 02/24/19 glimepiride 4 mg tablet 4 mg PO BID tab 11/28/18
[2021-02-06 20:16] VITALS: BP 146/76; PULSE 74; RESP 19; TEMP 36.8
== END 2021-02-06 20:18 | disposition home or self-care (01) ==
PROVIDERS: Emergency Provider Nurse Practitioner; PCP Internal Medicine Adolescent Medicine
DX: S61.012A Laceration without foreign body of left thumb without damage to nail, initial encounter (principal); W27.8XXA Contact with other nonpowered hand tool, initial encounter; Y92.71 Barn as the place of occurrence of the external cause; E11.9 Type 2 diabetes mellitus without complications; Z79.84 Long term (current) use of oral hypoglycemic drugs; K21.9 Gastro-esophageal reflux disease without esophagitis; E78.5 Hyperlipidemia, unspecified; I10 Essential (primary) hypertension; Z23 Encounter for immunization
CPT/HCPCS: 12001; 90714; 96372; 99202; G0463

== ENCOUNTER → 2021-03-15 12:32 | Outpatient (CLI) | payer BC, SELFPAY | PROVIDERS: Visit Provider Internal Medicine Gastroenterology | DX: Z20.822 Contact with and (suspected) exposure to COVID-19 (principal) | CPT/HCPCS: U0003 ==

== ENCOUNTER 2021-03-17 09:26 | Day surgery (SDC) | payer BC, SELFPAY ==
[2021-03-14 12:23] VITALS: BMI 27.1
[2021-03-17 09:55] VITALS: BP 135/71; PULSE 46; RESP 18; TEMP 36.9; O2SAT 97
[2021-03-17 10:10] LABS: POC Glucose,Bedside 109 (70-110)
--- NOTE | 2021-03-17 10:44 | HMH.ANESCL ---
[facility] Anesthesia Checklist - Patient Identification Patient Identification: Arm Band - Structural Data Admitted From: Home Planned Operative Procedure/s: colonoscopy Consent for Planned Operative Procedure(s) Verified: Yes Verified Documents: Surgical Consent, History and Physical - NPO Status Verified Time NPO: 00:00 - Additional verifications Anesthesia Reactions: No Hx Blood Transfusions: No - Airway Assessment C-Spine Mobility Assessed: Yes (mp2) TMJ Mobility Assessed: Yes Dentition: Good Dentition - Neurological Assessment Level of Consciousness: Awake, Alert - Anesthesia Plan Anesthesia Risk discussed: Yes Anesthesia Plan: Verified ASA Class: III Anesthesia Type: MAC [facility] History I have reviewed the patient's past medical history: Yes Medical History: Reports:: Diabetes Mellitus Type 2, Gastroesophageal Reflux Disease(GERD), Hyperlipidemia, Hypertension Denies:: Cancer, Diabetes Mellitus Type 1, Internal Pacemaker, MRSA, Seizures *Have you ever received a pneumonia vaccine?: No *Have you received a flu vaccine this season?: No Anesthesia experience/problems:: nac Other Surgeries: Yes: Cardiac Catheterization. No: Pacemaker Amputation: No Fractures: No - *Social History Last grade of school completed: Some college Smoking Status: Former smoker #Yrs smoked (if former smoker): 20 Alcohol Intake: never Alcohol Intake Frequency:: holidays/special occasions only Substance Use Type: denies use *Occupational Status:: other Housing: house Household Members: spouse *Travel in the last 8 weeks: None Family Hx:: Bleeding Disorder, Coronary Artery Disease, Hypertension
--- NOTE | 2021-03-17 11:11 | P.PCN_ITS ---
[facility] Procedure Note Procedure Note:: Colonoscopy Procedure Report: Colonoscopy Endoscopist: Gustavo Archer II, MD Referring physician: MIKE Quiros Date of Procedure: March 17, 2021 Equipment: Olympus 190 variable stiffness pediatric colonoscope Sedation: MAC sedation Indication: Mr. Zarate is a 60-year-old gentleman who is here for follow-up screening colonoscopy. He does state that his last colonoscopy 13 years ago was normal. He reports no abdominal pain, weight loss, change in his bowel habits or rectal bleeding. He reports no family history of colon cancer. Procedure: Prior to the procedure, a history and physical exam was performed, and patient's medications and allergies were reviewed. The risks, benefits and alternatives of the sedation and procedure were discussed with the patient. All questions were answered and informed consent was obtained. The patient was brought to the procedure room. Patient identification and proposed procedure were verified by the physician and the nurse. The patient was placed in a left lateral decubitus position and the scope was passed under direct vision. Throughout the procedure, the patient's blood pressure, pulse, and oxygen saturations were monitored continuously. The colonoscopy was accomplished without difficulty. The patient tolerated the procedure well. Findings: On digital rectal examination there was normal rectal tone. There were no external hemorrhoids. The prostate was 2+, smooth, soft, symmetric without nodules. The colonoscope was introduced through the anal canal to the rectum and advanced to the cecum. The ileocecal valve and appendiceal orifice were identified. The scope was advanced a short distance into the ileum which appeared grossly normal. The scope was then withdrawn into the colon. The cecum, ascending and transverse colon and mucosa were grossly normal. There was very mild melanosis coli. There were a few scattered diverticuli throughout the descending and sigmoid colon (LEFT colon). The rectum itself was normal. Upon retroflexion within the rectum there were grade 1-2 internal hemorrhoids. The preparation was excellent throughout with Oliver Preparation Score of 9. The cecal time was 12 minutes. Impression: 1. Mild left-sided diverticulosis 2. Grade 1-2 internal hemorrhoids Plan: The patient will not require screening/surveillance colonoscopy again for 10 years by ACS guidelines. I would encourage bulking fiber supplementation on a long-term daily maintenance basis.
[2021-03-17 11:12] VITALS: BP 131/73; PULSE 77; RESP 16; TEMP 36.3; O2SAT 94
[2021-03-17 11:22] VITALS: BP 144/81; PULSE 66; RESP 18; TEMP 36.3; O2SAT 96
[2021-03-17 11:32] VITALS: BP 129/82; PULSE 73; RESP 18; TEMP 36.3; O2SAT 98
[2021-03-17 11:42] VITALS: BP 138/78; PULSE 68; RESP 18; TEMP 36.3; O2SAT 98
[2021-03-17 12:37] VITALS: O2SAT 97
== END 2021-03-17 11:42 | disposition home or self-care (01) ==
LOC: OUTP 09:28
PROVIDERS: PCP Internal Medicine Adolescent Medicine; Visit Provider Internal Medicine Gastroenterology
PROC: 0DJD8ZZ Inspection of Lower Intestinal Tract, Via Natural or Artificial Opening Endoscopic (ICD-10-PCS; CPT 45378; principal; 2021-03-17 10:30)
DX: Z12.11 Encounter for screening for malignant neoplasm of colon (principal); K57.30 Diverticulosis of large intestine without perforation or abscess without bleeding; K64.0 First degree hemorrhoids
CPT/HCPCS: 45378; 82962

== ENCOUNTER → 2021-06-29 08:38 | Outpatient (CLI) | payer BC, SELFPAY ==
[2021-06-29 09:15] LABS: Basophils # 0.2 K/mm3 (0-0.2); Basophils % 1.8 % (0.1-2.0); Eosinophils # 0.4 K/mm3 (0.0-0.4); Hematocrit 50.3 % (42.0-52.0); Hemoglobin 16.7 g/dL (14.1-18.0); Lymphocytes # 2.1 K/mm3 (0.7-4.5); Lymphocytes % 24.5 % (10-50); Mean Corpuscular HGB Conc 33.1 g/dL (31.8-35.4); Mean Corpuscular Hemoglobin 30.9 pg (27.0-31.2); Mean Corpuscular Volume 93.3 fl (80-94); Mean Platelet Volume 9.1 fl (7.4-10.4); Monocytes # 0.7 K/mm3 (0.1-1.0); Monocytes % 7.7 % (1.7-9.3); Neutrophils # 5.5 K/mm3 (1.8-7.8); Neutrophils % 62.1 % (37.0-80.0); Platelet Count 288 K/mm3 (142-424); Red Blood Count 5.39 M/mm3 (4.60-6.20); Red Cell Distribution Width 14.5 % (11.5-17.5); White Blood Count 8.8 K/mm3 (4.8-10.8)
[2021-06-29 09:53] LABS: Chloride 102 mmol/L (98-107); Potassium 4.4 mmoL/L (3.5-5.1); Sodium 139 mmol/L (136-145)
[2021-06-29 09:55] LABS: Alanine Aminotransferase 26 U/L (12-78); Aspartate Amino Transferase 35 U/L (17-59); Blood Urea Nitrogen 20 mg/dl (9-20); Estimated Glomerular Filt Rate 85 ml/min (>60); GFR (African American) 103 ML/MIN (>60)
[2021-06-29 09:56] LABS: Albumin Level 4.6 g/dl (3.5-5.0); Albumin/Globulin Ratio 1.8 (1.1-1.8); Alkaline Phosphatase 64 U/L (38-126); Anion Gap 14.4 mEq/L (5-15); Bilirubin,Total 0.5 mg/dl (0.2-1.3); Calcium 10.1 mg/dl (8.4-10.2); Carbon Dioxide 27 mmol/L (22.0-30.0); Chol/HDL Ratio 5.2 (1-3.5); Cholesterol 201 mg/dl (140-200); Globulin 2.6 g/dL (1.3-3.2); Glucose 131 mg/dl (74-100); HDL Cholesterol 39 mg/dl (40-60); Total Protein,Serum 7.2 g/dl (6.3-8.2); Triglycerides 242 mg/dl (30-150); VLDL Cholesterol 48 mg/dL (0-40)
[2021-06-29 10:07] LABS: Direct LDL Cholesterol 122.18 mg/dL (100-129)
[2021-06-29 10:31] LABS: Ferritin 32.3 ng/ml (17.9-464)
[2021-06-29 10:36] LABS: Hemoglobin A1C 8.2 % (4.0-6.0)
== END ==
PROVIDERS: PCP Internal Medicine Adolescent Medicine; Visit Provider Internal Medicine Adolescent Medicine
DX: E11.9 Type 2 diabetes mellitus without complications (principal); E83.110 Hereditary hemochromatosis; Z79.4 Long term (current) use of insulin
CPT/HCPCS: 36415; 80053; 80061; 82728; 83036; 85025

== ENCOUNTER → 2022-09-27 09:38 | Outpatient (CLI) | payer SELFPAY ==
[2022-09-27 10:02] LABS: Basophils # 0.1 K/mm3 (0-0.2); Basophils % 1.1 % (0.1-2.0); Eosinophils # 0.4 K/mm3 (0.0-0.4); Eosinophils % 4.9 % (0.1-12.0); Hematocrit 47.2 % (42.0-52.0); Hemoglobin 15.6 g/dL (14.1-18.0); Lymphocytes # 1.3 K/mm3 (0.7-4.5); Lymphocytes % 15.7 % (10-50); Mean Corpuscular HGB Conc 33.1 g/dL (31.8-35.4); Mean Corpuscular Hemoglobin 31.5 pg (27.0-31.2); Mean Corpuscular Volume 95.1 fl (80-94); Monocytes # 0.6 K/mm3 (0.1-1.0); Monocytes % 6.7 % (1.7-9.3); Neutrophils % 71.5 % (37.0-80.0); Platelet Count 192 K/mm3 (142-424); Red Blood Count 4.96 M/mm3 (4.60-6.20); Red Cell Distribution Width 13.4 % (11.5-17.5); White Blood Count 8.3 K/mm3 (4.8-10.8)
[2022-09-27 10:12] LABS: Hemoglobin A1C 7.9 % (4.0-6.0)
[2022-09-27 10:35] LABS: Alanine Aminotransferase 28 U/L (12-78); Albumin Level 4.5 g/dl (3.5-5.0); Albumin/Globulin Ratio 2.1 (1.1-1.8); Alkaline Phosphatase 63 U/L (38-126); Aspartate Amino Transferase 33 U/L (17-59); Bilirubin,Total 0.6 mg/dl (0.2-1.3); Blood Urea Nitrogen 14 mg/dl (9-20); Calcium 9.3 mg/dl (8.4-10.2); Carbon Dioxide 23 mmol/L (22.0-30.0); Chloride 110 mmol/L (98-107); Chol/HDL Ratio 4.3 (1-3.5); Cholesterol 133 mg/dl (140-200); Estimated Glomerular Filt Rate 114 ml/min (>60); GFR (African American) 137 ML/MIN (>60); Globulin 2.1 g/dL (1.3-3.2); Glucose 116 mg/dl (74-100); HDL Cholesterol 31 mg/dl (40-60); Sodium 141 mmol/L (136-145); Total Protein,Serum 6.6 g/dl (6.3-8.2); Triglycerides 117 mg/dl (30-150); VLDL Cholesterol 23 mg/dL (0-40)
[2022-09-27 10:46] LABS: Direct LDL Cholesterol 70.74 mg/dL (100-129)
[2022-09-27 10:53] LABS: 25-OH Vitamin D, Total 43.5 ng/mL (30-100)
[2022-09-27 10:55] LABS: Free Thyroxine Index 2.6 ug/dL (5.93-13.13); T4 (Thyroxine) 7.7 ug/dl (5.53-11.0); Triiodothryronine (T3) Uptake 34 % (23.5-40.5)
[2022-09-27 11:09] LABS: Thyroid Stimulating Hormone 0.99 uIU/mL (0.465-4.68)
[2022-09-27 11:42] LABS: Vitamin B12 884 pg/mL (239-931)
[2022-09-27 12:20] LABS: Ferritin 17.2 ng/ml (17.9-464)
[2022-09-30 13:35] LABS: Methylmalonic Acid 83 nmol/L (0-378)
== END ==
PROVIDERS: PCP Internal Medicine Adolescent Medicine; Visit Provider Internal Medicine Adolescent Medicine
DX: E83.110 Hereditary hemochromatosis (principal); E78.1 Pure hyperglyceridemia; E78.2 Mixed hyperlipidemia; R41.3 Other amnesia; E11.9 Type 2 diabetes mellitus without complications; Z79.4 Long term (current) use of insulin
CPT/HCPCS: 36415; 80053; 80061; 82131; 82306; 82607; 82728; 82746; 83036; 84436; 84443; 84479; 85025

== ENCOUNTER → 2022-10-15 07:49 | Outpatient (CLI) | payer BC, SELFPAY ==
--- NOTE | 2022-10-15 07:51 | MR_ITS ---
FINAL REPORT TECHNIQUE: Multiplanar and multisequence imaging of the brain was obtained without contrast. CLINICAL HISTORY: short term MEMORY LOSS. COMPARISON: 04/25/2017 FINDINGS: There are several subcortical and periventricular foci of T2 abnormal signal which is unchanged from prior exam. The gyri and sulci are within normal limits for age. There is no mass effect or midline shift. The ventricles are symmetric in size and configuration without hydrocephalus. There are no areas of abnormal signal intensity. The cerebellum and brainstem have a normal appearance. There are no areas of restricted diffusion on diffusion weighted images to suggest acute infarct. Soft tissues are without acute abnormality. IMPRESSION: No acute intracranial abnormality. Stable white matter changes, nonspecific. Reviewed, Interpreted and Dictated by Ramona Burgos MD Transcribed by Tracey Schuster Authenticated and [facility]
== END ==
PROVIDERS: PCP Internal Medicine Adolescent Medicine; Visit Provider Internal Medicine Adolescent Medicine
DX: R41.3 Other amnesia (principal)
CPT/HCPCS: 70551

== ENCOUNTER → 2022-12-06 08:14 | Outpatient (CLI) | payer BC, SELFPAY ==
--- NOTE | 2022-12-06 08:18 | US_ITS ---
FINAL REPORT CLINICAL HISTORY: RUQ PAIN AND ABDOMINAL COMPARISON: None FINDINGS: Sonographic images of the right upper quadrant were obtained. The pancreas is partially obscured. There is mild fatty infiltration of the liver. There is a minimal amount of sludge in the gallbladder. There is no evidence of biliary ductal dilatation.The common duct measures 3 mm. There is a multitude of anechoic structures in the right kidney. The individual structures measure up to 6.0 cm in greatest dimension consistent with multiple benign appearing cysts. There is no hydronephrosis seen. IMPRESSION: Multitude of right renal cysts measuring up to 6 cm. Fatty infiltration of the liver. Minimal sludge in the gallbladder. Reviewed, Interpreted and Dictated by Vini Polanco MD Transcribed by Farideh Mccrary Authenticated and [facility]
== END ==
PROVIDERS: PCP Internal Medicine Adolescent Medicine; Visit Provider Internal Medicine Adolescent Medicine
DX: R10.11 Right upper quadrant pain (principal)
CPT/HCPCS: 76705

== ENCOUNTER 2025-03-26 18:21 | Emergency (ER) | payer MEDICARE, SELFPAY ==
--- NOTE | 2025-03-26 19:18 | HMH.EDGENADL ---
Discharge Plan Disposition Patient Disposition: Home, Self-Care Condition: Good Prescriptions Prescriptions: New sulfamethoxazole-trimethoprim [Bactrim DS] 800-160 mg tablet 1 tab PO BID 5 Days Qty: 10 0RF clindamycin HCl [Cleocin HCl] 300 mg capsule 300 mg PO Q6H 7 Days Qty: 28 0RF No Action omega-3 fatty acids 500 mg capsule 1,000 mg PO ONCE metformin 1,000 mg tablet 1,000 mg PO BID fenofibrate 150 mg capsule 145 mg PO ONCE diclofenac sodium 75 mg tablet,delayed release (DR/EC) 75 mg PO BID glimepiride 4 mg tablet 4 mg PO BID Victoza 3-Ryan 0.6 mg/0.1 mL (18 mg/3 mL) pen injector 0.6 mg SQ DAILY dapaglifloz propaned-metformin 10-1,000 mg tablet, IR - ER, biphasic 24hr 1 tab PO DAILY insulin glargine 100 unit/mL (3 mL) insulin pen 30 unit SQ HS rosuvastatin 20 MG tablet 20 mg PO HS omeprazole 40 MG capsule,delayed release(DR/EC) See Rx Instructions .Route .COMPLEX Rx Instructions: TAKE ONE CAPSULE BY MOUTH ONCE A DAY Referrals Follow up/Referrals: Tj Stokes MD [Primary Care Provider, Internal Medicine] - See instructions Joie Banks DPM [Staff Physician, Podiatry] - See instructions Activity Restrictions/Add. Instructions Additional Instructions/Restrictions: I am sending your prescription into the pharmacy. Please take your antibiotics till its completely gone. I am also referring you to podiatry. Please call on Saturday to make your follow-up appointment. If you have any increasing redness pain or swelling please return to the emergency department as needed. Clinical Impressions Clinical Impression: Cellulitis of foot, right Puncture wound of foot, right Qualifiers: Encounter type: initial encounter Qualified Code(s): S91.331A - Puncture wound without foreign body, right foot, initial encounter Print Language Print Language: Welsh Discharge ED Provider: Minh Alvarenga Adult HPI <SUSAN Jackson - Last Filed: 03/26/25 21:15> General Chief complaint: Extremity Injury, Lower Stated complaint: AO 03/25/25 0800 stepped on fencing wire rightfoot Time Seen by Provider: 03/26/25 19:19 History of Present Illness HPI narrative: Patient presents for evaluation of a right foot injury. Patient states that he stepped on fencing wire on . The wire penetrated his boot and punctured his foot. Patient states that since then while he has been able to walk on it it is gotten red and more swollen. He denies any fever chills loss of motor or sensory. He is a type II diabetic however. Related Data Home Medications ?Medication ?Instructions ?Recorded ?Confirmed diclofenac sodium 75 mg 75 mg PO BID Pain 10/22/17 03/26/25 tablet,delayed release fenofibrate 150 mg capsule 145 mg PO ONCE Cholesterol 10/22/17 03/26/25 metformin 1,000 mg tablet 1,000 mg PO BID Diabetes 10/22/17 03/26/25 omega-3 fatty acids 500 mg capsule 1,000 mg PO ONCE Supplement 10/22/17 03/26/25 glimepiride 4 mg tablet 4 mg PO BID Diabetes 11/28/18 03/26/25 insulin glargine 100 unit/mL (3 30 unit SQ HS Diabetes 11/28/18 03/26/25 mL) subcutaneous pen liraglutide 0.6 mg/0.1 mL (18 mg/3 0.6 mg SQ DAILY Diabetes 11/28/18 03/26/25 mL) subcutaneous pen injector (Victoza 3-Ryan) rosuvastatin 20 mg tablet 20 mg PO HS Cholesterol 02/24/19 03/26/25 dapagliflozin propaned 10 1 tab PO DAILY Diabetes 10/06/19 03/26/25 mg-metformin ER 1,000 mg tablet,ext rel 24hr omeprazole 40 mg capsule,delayed See Rx Instructions .Route 03/14/21 03/26/25 release .COMPLEX Reflux/Acid reflux Previous Rx's ?Medication ?Instructions ?Recorded clindamycin HCl 300 mg capsule 300 mg PO Q6H 7 days #28 caps 03/26/25 (Cleocin HCl) sulfamethoxazole 800 1 tab PO BID 5 days #10 tabs 03/26/25 mg-trimethoprim 160 mg tablet (Bactrim DS) Allergies Allergy/AdvReac Type Severity Reaction Status Date / Time No Known Allergies Allergy Verified 02/06/21 19:12 [facility] <SUSAN Jackson - Last Filed: 03/26/25 21:15> [facility] Disclaimer: The information contained in this section may have been updated after the patient was seen, as this information can be updated by other users. Medical History (Updated 03/26/25 @ 20:01 by SUSAN Jackson) Diabetes mellitus Abnormal EKG Dizziness Social History (System 11/28/18 @ 14:54 by Cyndi Bustillo) Smoking Status: Never smoker second hand exposure: No alcohol intake: never substance use type: denies use current occupational status: retired Travel in the last 8 weeks?: None household members: spouse housing: house current occupational exposures/hazards: No caffeine: No Have you lived/traveled outside [place] in past 30 days?: No Contact w/someone who lives/traveled outside US past 30 days?: No Exposure to someone with infectious disease in past 14 days?: No Do you have a fever (greater than 100.4 F or 38 C)?: No Have you tested positive for COVID-19?: No Exposed to someone with COVID-19 in past 14 days?: No Do you have a sore throat?: No Do you have a cough?: No Do you have any weakness?: No Do you have any diarrhea?: No Are you experiencing any unusual bleeding?: No Do you have any muscle aches/pain?: No Do you have any abdominal pain?: No Are you experiencing loss of taste or smell?: No Other Medical History Have you received the Flu Vaccine for this season: Yes Have you received the Pneumonia Vaccine: Yes <SUSAN Jackson - Last Filed: 03/26/25 21:15> ROS Obtained: Yes Systems reviewed as appropriate & no additional complaints except as documented Physical Exam <SUSAN Jackson - Last Filed: 03/26/25 21:15> General General appearance: alert and in no apparent distress Respiratory Respiratory exam: Present normal lung sounds bilaterally Cardiovascular Cardiovascular exam: Present regular rate Neurological Exam Neurological exam: Present alert and oriented X3 Medical Decision Making <SUSAN Jackson - Last Filed: 03/26/25 21:15> Medical Records Medical records reviewed: Yes I reviewed the patient's medical records. Screening: Per USPSTF and CDC recommendations, given the prevalence of disease in our region, it is our hospital?s policy to screen for HIV and viral Hepatitis for all patients aged 18 and over and those with ongoing risk factors. Varghese Inquiry Pt receiving controlled substance: No Vital Signs: 03/26/25 19:29 03/26/25 20:59 03/26/25 21:17 Temperature 97.7 F 98.3 F Temperature Source Oral Oral Pulse Rate 70 74 Pulse Rate [Radial] 72 Respiratory Rate 16 16 16 Blood Pressure 161/74 H 134/68 Blood Pressure [Left Arm] 154/65 H Blood Pressure Mean [Left Arm] 94 Blood Pressure Position Sitting 02 Sat by Pulse Oximetry 98 99 Oxygen Delivery Method Room Air Room Air Room Air Lab Data Lab results reviewed: Yes I reviewed the patient's lab results. Orders (Tests/Meds): ED MEDICATIONS Discontinued Medications Generic Name Dose Route Start Last Admin Trade Name Freq PRN Reason Stop Dose Admin Clindamycin HCl 300 mg 03/26/25 19:50 03/26/25 19:59 Clindamycin 150mg Capsule PO 03/26/25 19:51 300 mg ONCE ONE Administration Pantoprazole Sodium 40 mg 03/26/25 20:58 03/26/25 21:01 Pantoprazole 40mg Tablet PO 03/26/25 20:59 40 mg ONCE ONE Administration Trimethoprim/Sulfamethoxazole 1 each 03/26/25 19:50 03/26/25 19:59 Sulfa/Trimethoprim 1 Tablet PO 03/26/25 19:51 1 each ONCE ONE Administration ORDERS Category Date Time Status Foot XR right minimum 3 views [XR foot RT min 3V] Stat Exams 03/26/25 19:19 Completed Medical Decision Narrative: In summary patient is a 64-year-old male who presents to the emergency department for evaluation of puncture wound to the right foot. Patient is hemodynamically stable upon arrival, afebrile. Physical exam is remarkable for puncture wound on the plantar surface of his right foot and there is no evidence of induration erythema ecchymosis. Patient has full range of motion is neurovascular intact distally. On the dorsum of the foot however there is erythema spreading from the first interdigital space onto the dorsum of the foot towards the ankle.. Differential diagnosis includes cellulitis versus abscess. Initial workup will be conducted with hematologic labs plain film x-ray. Initial interventions include Bactrim and clindamycin and patient's Tdap is up-to-date. Initial workup reviewed by me and my informal trepidation of his imaging shows no acute bony abnormality or foreign body. Upon repeat evaluation patient is able to ambulate in the ER. Given this patient is appropriate for discharge with prescription for Bactrim and clindamycin with first dose given here and referral to podiatry for ongoing management care and strict return precautions. <Minh Alvarenga MD - Last Filed: 03/27/25 10:05> Vital Signs: 03/26/25 19:29 03/26/25 20:59 03/26/25 21:17 Temperature 97.7 F 98.3 F Temperature Source Oral Oral Pulse Rate 70 74 Pulse Rate [Radial] 72 Respiratory Rate 16 16 16 Blood Pressure 161/74 H 134/68 Blood Pressure [Left Arm] 154/65 H Blood Pressure Mean [Left Arm] 94 Blood Pressure Position Sitting 02 Sat by Pulse Oximetry 98 99 Oxygen Delivery Method Room Air Room Air Room Air Orders (Tests/Meds): ED MEDICATIONS Discontinued Medications Generic Name Dose Route Start Last Admin Trade Name Freq PRN Reason Stop Dose Admin Clindamycin HCl 300 mg 03/26/25 19:50 03/26/25 19:59 Clindamycin 150mg Capsule PO 03/26/25 19:51 300 mg ONCE ONE Administration Pantoprazole Sodium 40 mg 03/26/25 20:58 03/26/25 21:01 Pantoprazole 40mg Tablet PO 03/26/25 20:59 40 mg ONCE ONE Administration Trimethoprim/Sulfamethoxazole 1 each 03/26/25 19:50 03/26/25 19:59 Sulfa/Trimethoprim 1 Tablet PO 03/26/25 19:51 1 each ONCE ONE Administration ORDERS Category Date Time Status Foot XR right minimum 3 views [XR foot RT min 3V] Stat Exams 03/26/25 19:19 Completed Medical Decision Narrative: In summary patient is a 64-year-old male who presents to the emergency department for evaluation of puncture wound to the right foot. Patient is hemodynamically stable upon arrival, afebrile. Physical exam is remarkable for puncture wound on the plantar surface of his right foot and there is no evidence of induration erythema ecchymosis. Patient has full range of motion is neurovascular intact distally. On the dorsum of the foot however there is erythema spreading from the first interdigital space onto the dorsum of the foot towards the ankle.. Differential diagnosis includes cellulitis versus abscess. Initial workup will be conducted with hematologic labs plain film x-ray. Initial interventions include Bactrim and clindamycin and patient's Tdap is up-to-date. Initial workup reviewed by me and my informal trepidation of his imaging shows no acute bony abnormality or foreign body. Upon repeat evaluation patient is able to ambulate in the ER. Given this patient is appropriate for discharge with prescription for Bactrim and clindamycin with first dose given here and referral to podiatry for ongoing management care and strict return precautions. I was consulted by the KRYSTAL, and we discussed the complexity of the problems being addressed. I approve the treatment and management plan for this patient's care in the emergency department, thus performing a substantive portion of the medical decision making. Mihn Alvarenga MD Critical Care <SUSAN Jackson - Last Filed: 03/26/25 21:15> Critical Care Time Critical Care Time: No
--- NOTE | 2025-03-26 19:19 | XR_ITS ---
PROCEDURE INFORMATION: Exam: XR Right Foot Exam date and time: 03/26/2025 7:21 PM Age: 64 years old Clinical indication: Injury or trauma; Other: Stepped on a wire fence TECHNIQUE: Imaging protocol: Radiologic exam of the right foot. Views: 3 or more views. COMPARISON: No relevant prior studies available. FINDINGS: Bones/joints: Moderate degenerative changes of the 1st MTP, with joint space narrowing, subchondral sclerosis/irregularity, and osteophyte formation. No acute fracture or dislocation. Soft tissues: Normal. Vasculature: Atherosclerotic vascular disease. IMPRESSION: No acute fracture or dislocation.
--- OUTSIDE RECORDS SUMMARY | 2025-03-26 19:23 | XMS_ITS | Clinical Summary ---
Author Organization Healthcare Address [address] [id number] Care Team Providers Care Slubber Frame Changer Name Role Phone Tj Stokes MD Primary Care Provider + [phone] Family History Medical History Relation Name Comments Heart attack Father Hypertension Father Conversions - Other Mother Back pro blem Relation Name Status Comments Father Mother Social History Tobacco Use Types Packs/Day Years Used Date Smoking Tobacco: Never Sex and Gender Information Value Date Recorded Sex Assigned at Not on file Legal Sex Male 8:51 PM EDT Gender Identity Not on file Sexual Orientation Not on file Last Filed Vital Signs Vital Sign Reading Time Taken Comments Blood Pressure - - Pulse - - Temperature - - Respiratory Rate - - Oxygen Saturation - - Inhaled Oxygen Concentration - - Weight 103 kg (228 lb) 03/26/2014 10:25 AM EDT Height 182.9 cm (6') 03/26/2014 10:25 AM EDT Body Mass Index 30.92 03/26/2014 10:25 AM EDT Plan of Treatment Not on file Care Teams Slubber Frame Changer Relationship Specialty Start Date End Date Tj Stokes MD [address] [place] [address] PCP - General 01/13/21
[2025-03-26 19:29] VITALS: BP 154/65; PULSE 72; RESP 16; TEMP 36.5; O2SAT 98; BMI 27.1
[2025-03-26] MEDS: CLINDAMYCIN 150MG CAPSULE 300 MG PO (19:59)
[2025-03-26] MEDS: SULFA/TRIMETHOPRIM 1 TABLET 1 EACH PO (19:59)
[2025-03-26 20:59] VITALS: BP 161/74; PULSE 70; RESP 16; O2SAT 99
[2025-03-26] MEDS: PANTOPRAZOLE 40MG TABLET 40 MG PO (21:01)
[2025-03-26 21:17] VITALS: BP 134/68; PULSE 74; RESP 16; TEMP 36.8; O2SAT 98
== END 2025-03-26 21:18 | disposition home or self-care (01) ==
PROVIDERS: Emergency Provider Student in an Organized Health Care Education/Training Program; PCP Internal Medicine Adolescent Medicine
DX: L03.115 Cellulitis of right lower limb (principal); S91.331A Puncture wound without foreign body, right foot, initial encounter; W45.8XXA Other foreign body or object entering through skin, initial encounter
CPT/HCPCS: 73630; 99283